=== PATIENT | male | born 1990 | race Caucasian/White ===

== ENCOUNTER 2023-07-16 16:43 | Outpatient (CLI) | payer OTHER ==
--- NOTE | 2023-07-17 16:58 | MRI Report ---
PROCEDURE: KNEE WO - RT INDICATIONS: RIGHT KNEE PAIN TECHNIQUE: Noncontrast sagittal PD fast spin echo and T2 fast spin echo with fat saturation, sagittal 3-D gradie nt sequence with fat saturation; coronal T1 spin echo and PD fast spin echo with fat saturation, and axial PD fast spin echo with fat saturation through the knee. COMPARISON: None. FINDINGS: Image quality: Excellent. Menisci: Linear oblique high T2 signal intensity traverses the peripheral third of the medial menisca l body and posterior horn, demonstrating inferior articular surface extension, indicating oblique tea ring. There is a possible trapped meniscal fragment within the medial gutter. Lateral meniscus is int act. Cruciate ligaments: The anterior and posterior cruciate ligaments appear intact. Medial structures: The medial collateral ligament appears intact. Moderate T2 signal elevation surro unding the medial collateral ligament is present. Visualized portions of the pes anserinus tendons ap pear normal. No abnormal bursal fluid. Lateral structures: The lateral collateral ligament, long and short heads of the biceps femoris tend on appear intact. The popliteus tendon appears normal. Iliotibial band appears normal. Anterior structures: The quadriceps and patellar tendons appear intact. Patellar alignment is seth l. No femoral trochlear dysplasia or ventral trochlear prominence. No edema in the infrapatellar fa t pad. Bones and cartilage: Moderate ill-defined T2 signal elevation within the mid and anterior weightbeari ng aspects of the lateral femoral condyle and lateral tibial plateau. There is ill-defined subchondra l linear low T1/T2 signal intensity within the mid weightbearing aspect of the lateral femoral condyl e as well as the mid/anterior aspect of the lateral tibial plateau. Joint space: There is a small knee joint effusion and a trace Coburn's cyst. Normal appearing synovi al plicae are incidentally noted. IMPRESSION: 1. Nondisplaced fractures of the lateral femoral condyle and lateral tibial plateau with surrounding contusion. 2. Medial meniscal tear. 3. Medial caudal ligament strain. 4. Small knee joint effusion and trace Coburn's cyst. Reviewed by: Aries Fofana MD on 07/17/2023 4:57 PM PDT Approved by: Aries Fofana MD on 07/17/2023 4:57 PM PDT Station ID: [id number]
== END 2023-07-16 16:44 | disposition home or self-care (01) ==
LOC: DI 16:43
DX: S72.424A Nondisplaced fracture of lateral condyle of right femur, initial encounter for closed fracture (principal); S82.291A Other fracture of shaft of right tibia, initial encounter for closed fracture; S83.241A Other tear of medial meniscus, current injury, right knee, initial encounter; S86.811A Strain of other muscle(s) and tendon(s) at lower leg level, right leg, initial encounter; M25.461 Effusion, right knee; M71.21 Synovial cyst of popliteal space [Baker], right knee

== ENCOUNTER 2024-08-03 08:47 | Outpatient (CLI) | payer OTHER ==
--- NOTE | 2024-08-03 18:10 | MRI Report ---
PROCEDURE: Brain WO INDICATIONS: HEADACHE TECHNIQUE: Multiplanar multisequential MR images of the brain were obtained without contrast COMPARISON: None FINDINGS: CSF Spaces: Basal cisterns are patent. No extra-axial fluid collections. Ventricles are normal in size and shape. Brain: No intracranial masses or hemorrhage. Sadler/white matter interface is normal. Brainstem appe ars normal. Diffusion-weighted images shows no evidence of acute infarct. Normal intravascular flow voids are present. 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 Orbits appear normal. Sinuses: Sinuses and mastoids are clear. 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 Otherwise unremarkable MRI of the brain. Reviewed by: Sonido Carmichael MD on 08/03/2024 5:08 PM MILY Approved by: Sonido Carmichael MD on 08/03/2024 5:08 PM MILY Station ID: [id number]
== END 2024-08-03 08:48 | disposition home or self-care (01) ==
LOC: DI 08:47
DX: R51.9 Headache, unspecified (principal)